=== PATIENT | male | born 1950 | race Caucasian/White ===

== ENCOUNTER 2019-07-29 18:55 | Inpatient (IN) | payer MEDICARE ==
[~2019-07-29] VITALS: Ht 182.9 cm; Wt 93.2 kg
[2019-07-29] MEDS ORDERED: ACETAMINOPHEN 650 MG SUPP PR ONE (19:30)
[2019-07-29 19:42] LABS: RAPID INFLUENZA A Negative (Negative); RAPID INFLUENZA B Negative (Negative)
[2019-07-29 19:47] LABS: ALANINE AMINOTRANSFERASE 217 U/L (12-78); ALBUMIN 3.1 g/dL (3.4-5.0); ANION GAP 8 mmol/L (5-15); CHLORIDE 105 mmol/L (98-107); CREATININE 1.26 mg/dL (0.7-1.3)
[2019-07-29 19:49] LABS: ALKALINE PHOSPHATASE 374 U/L (45-117); BILIRUBIN,TOTAL 1.7 mg/dL (0.2-1.0); TOTAL PROTEIN 6.9 g/dL (6.4-8.2)
[2019-07-29 19:54] LABS: MEAN CORPUSCULAR HGB CONC 31.8 g/dL (33.2-36.2); MEAN CORPUSCULAR VOLUME 78.7 fL (81-97); MEAN PLATELET VOLUME 7.9 fL (7.4-10.4); PLATELET COUNT 245 x10^3/uL (130-400); RED BLOOD COUNT 5.31 x10^6/uL (4.38-5.82); RED CELL DISTRIBUTION WIDTH 24.5 % (9.4-14.8)
[2019-07-29 20:21] LABS: MD YES
[2019-07-29 20:22] LABS: BANDS%(MANUAL) 7 % (0-7); LYMPH#(MANUAL) 0.71 x10^3/uL (1-3.4); LYMPHS% (MANUAL) 10 % (22-44); MONOS#(MANUAL) 0.07 x10^3/uL (0.3-2.7); MONOS% (MANUAL) 1 % (2-9); SEG#(MANUAL) 5.82 x10^3/uL (1.8-6.8); SEGS% (MANUAL) 82 % (42-75)
[2019-07-29 20:23] LABS: <PLATELET ESTIMATE> ADEQUATE; <PLT MORPHOLOGY> NORMAL PLT MORPH; ANISOCYTOSIS 1+; HYPOCHROMIA 1+; MICROCYTOSIS 1+
--- NOTE | 2019-07-29 20:30 | NUR ---
PT FULLY DRESSED, KEEPS REPEATING "I NEED HELP, I'M SICK" INFORMED PT DOCTOR HAS ORDERED TESTS AND TYLENOL SUPPOSITORY. INFORMED PT OF NEED FOR URINE SPECIMEN. PT'S FRIEND IN ROOM. INSTRUCTED PT TO GET INTO HOSPITAL GOWN, FRIEND MAY ASSIST. PT PROCEEDED TO LAY DOWN ON GURNEY.
--- NOTE | 2019-07-29 20:50 | NUR ---
PT SUPINE ON GURNEY, STILL FULLY DRESSED. ASKED PT TO GET INTO GOWN AND TO PROVIDE URINE SPECIMEN
--- NOTE | 2019-07-29 20:57 | NUR ---
PT TO RADIOLOGY PER ALEJANDRO, STILL FULLY DRESSED. NO URINE SPECIMEN PROVIDED, YET.
--- NOTE | 2019-07-29 21:58 | NUR ---
PT IN LT LATERAL POSITION ON BED, STILL FULLY DRESSED; HAS NOT PROVIDED URINE SPECIMEN YET. PER REGISTRATION, PT NOT ANSWERING HER QUESTIONS. PT'S FRIEND NOT IN ROOM. DR KIMBLE NOTIFIED OF PT'S LACK OF COOPERATION
--- NOTE | 2019-07-29 22:00 | NUR ---
PT LYING ON GURNEY, RESP EVEN & UNLABORED, WHEN ASKED WHY HE'S IN ED, PT REPLIES "I HAVE A TERRIBLE CONDITION". PT RAMBLING. STATES "I HAVE A TERRIBLE COLD" C/O EXTREME FATIGUE. LAST CHEMO SESSION 1 WEEK AGO MONDAY. HAVING GREAT DIFFICULTY GETTING PT TO ANSWER QUESTIONS.
[2019-07-29] MEDS ORDERED: SULF1TAB23 PO (22:33)
[2019-07-29] MEDS ORDERED: CBD CAPSULE PO (22:33)
[2019-07-29] MEDS ORDERED: CABO60TA PO (22:33)
[2019-07-29] MEDS ORDERED: CABE0.5T PO (22:33)
[2019-07-29] MEDS ORDERED: SERT50TA28 PO (22:33)
--- NOTE | 2019-07-29 22:33 | NUR ---
PT'S FRIEND BROUGHT PT'S MED BOTTLES TO ED. MED REC COMPLETED USING BOTTLE LABELS.
--- NOTE | 2019-07-29 23:00 | NUR ---
PT REPORT TO SHIRA SALAS. PT CARE TRANSFERRED.
--- NOTE | 2019-07-29 23:20 | NUR ---
EARLENE RN: OLE [phone] EMERGENCY CONTACT.
[2019-07-30] MEDS ORDERED: SODIUM CHLORIDE FLUSH 10ML SYR IVF PRN
--- NOTE | 2019-07-30 00:13 | NUR ---
GENNARO RN NOTIFIED PT HAS PORT AND PT IS BEING DIFFICULT TO OBTAIN AN IV ON, RN "STATED THAT IT SHOULD BE FINE TO ACCESS LONG ONCOLOGIST DOES NOT WANT US TO USE IT" [place] [id number]
[2019-07-30 00:31] VITALS: BP 137/90
[2019-07-30] MEDS ORDERED: VANCOMYCIN PER PHARMACY MC PRN (01:30)
[2019-07-30] MEDS ORDERED: SODIUM CHLORIDE 0.9% 1,000ML IVBOLUS ONE (01:30)
[2019-07-30] MEDS ORDERED: PHARMACOKINETIC CONSULTATION MC ONE (02:00)
[2019-07-30] MEDS ORDERED: PHARMACOKINETIC MONITORING MC PRN (02:00)
[2019-07-30] MEDS ORDERED: LABETALOL 5MG/ML, 20ML IVPush PRN (02:00)
[2019-07-30] MEDS: PIPERACILLIN/TAZO/PMX 3.375GM 50 ML IV SCH ×4 (02:37→21:32)
[2019-07-30] MEDS: ONDANSETRON 2MG/ML, 2ML IVPush PRN ×2 (02:41→10:29)
[2019-07-30 03:29] LABS: INTERNATIONAL NORMALIZED RATIO 1.02 (0.93-1.1); PROTHROMBIN TIME 10.7 Seconds (9.6-11.5)
[2019-07-30 06:48] VITALS: BP 109/79
[2019-07-30 06:52] LABS: MICROSCOPIC AUTO
[2019-07-30 07:01] LABS: AMPHETAMINE SCREEN, URINE Negative (Negative); BARBITURATE SCREEN, URINE Negative (Negative); BENZODIAZEPINE SCREEN, URINE Negative (Negative); CANNABINOID SCREEN, URINE Positive (Negative); COCAINE SCREEN, URINE Negative (Negative); CULTURE INDICATED? YES; METHADONE SCREEN, URINE Negative (Negative); OPIATE SCREEN, URINE Negative (Negative)
[2019-07-30] MEDS: SODIUM CHLORIDE 0.9% 1,000 ML IV SCH ×2 (08:08→17:00)
[2019-07-30] MEDS: ENOXAPARIN 40 MG/0.4 ML SQ SCH (08:08)
[2019-07-30] MEDS: SERTRALINE 50MG TABLET PO SCH (08:08)
[2019-07-30] MEDS: VANCOMYCIN 1,800 MG in SODIUM CHLORIDE 0.9% 250 ML IV SCH (08:08)
[2019-07-30] MEDS ORDERED: OMNIPAQUE 350 MG/ML, 100ML BOTTLE ONE (10:59)
[2019-07-30 12:26] VITALS: BP 144/92
[2019-07-30] MEDS: ACETAMINOPHEN 325 MG TABLET PO PRN ×2 (12:44→18:11)
[2019-07-30] MEDS ORDERED: MAGNESIUM SULFATE PMX 2GM/50ML 50 ML IV ONE (13:00)
[2019-07-30] MEDS: LACTATED RINGERS 1,000 ML IV SCH (13:17)
[2019-07-30 18:55] VITALS: BP 128/77
[2019-07-30] MEDS ORDERED: SUMATRIPTAN 25 MG TABLET PO PRN (20:30)
[2019-07-31] MEDS: LACTATED RINGERS 1,000 ML IV SCH ×4 (01:44→18:00)
[2019-07-31 03:06] VITALS: BP 139/68
[2019-07-31] MEDS: PIPERACILLIN/TAZO/PMX 3.375GM 50 ML IV SCH ×4 (04:06→22:05)
[2019-07-31 04:37] LABS: MEAN CORPUSCULAR HEMOGLOBIN 25.4 pg (27.5-34.5); MEAN CORPUSCULAR VOLUME 79.2 fL (81-97); MEAN PLATELET VOLUME 7.1 fL (7.4-10.4); PLATELET COUNT 190 x10^3/uL (130-400); RED BLOOD COUNT 4.57 x10^6/uL (4.38-5.82); RED CELL DISTRIBUTION WIDTH 24.8 % (9.4-14.8)
[2019-07-31 04:54] LABS: ALBUMIN 2.5 g/dL (3.4-5.0); ANION GAP 5 mmol/L (5-15); CALCIUM 8.2 mg/dL (8.5-10.1); CHLORIDE 106 mmol/L (98-107)
[2019-07-31 04:58] LABS: ALANINE AMINOTRANSFERASE 140 U/L (12-78); ALKALINE PHOSPHATASE 267 U/L (45-117); BILIRUBIN,TOTAL 1.8 mg/dL (0.2-1.0); CREATININE 1.33 mg/dL (0.7-1.3); TOTAL PROTEIN 5.8 g/dL (6.4-8.2)
[2019-07-31 05:39] LABS: BASOPHILS # (AUTO) 0.02 x10^3/uL (0-0.1); BASOPHILS % (AUTO) 0 % (0-1); EOSINOPHILS # (AUTO) 0.15 x10^3/uL (0-0.4); EOSINOPHILS % (AUTO) 3 % (1-7); LYMPHOCYTES # (AUTO) 0.78 x10^3/uL (1-3.4); LYMPHOCYTES % (AUTO) 15 % (22-44); MD SCAN; MONOCYTES % (AUTO) 8 % (2-9); NEUTROPHILS # (AUTO) 3.74 x10^3/uL (1.8-6.8); NEUTROPHILS % (AUTO) 73 % (42-75)
[2019-07-31 06:33] VITALS: BP 139/89
[2019-07-31] MEDS: ACETAMINOPHEN 325 MG TABLET PO PRN ×2 (06:39→15:28)
[2019-07-31] MEDS: ONDANSETRON 2MG/ML, 2ML IVPush PRN ×3 (06:41→21:08)
[2019-07-31] MEDS: VANCOMYCIN 1,800 MG in SODIUM CHLORIDE 0.9% 250 ML IV SCH (07:20)
[2019-07-31] MEDS: SERTRALINE 50MG TABLET PO SCH (07:20)
[2019-07-31] MEDS: ENOXAPARIN 40 MG/0.4 ML SQ SCH (07:20)
[2019-07-31 12:17] VITALS: BP 123/85
[2019-07-31] MEDS ORDERED: LACTATED RINGERS 1,000 ML IV SCH (18:00)
[2019-07-31 18:47] VITALS: BP 141/80
[2019-08-01] MEDS: LACTATED RINGERS 1,000 ML IV SCH ×4 (01:28→22:30)
[2019-08-01 01:32] VITALS: BP 140/83
[2019-08-01] MEDS: PIPERACILLIN/TAZO/PMX 3.375GM 50 ML IV SCH ×3 (04:06→16:00)
[2019-08-01 04:15] LABS: MEAN CORPUSCULAR HEMOGLOBIN 25.3 pg (27.5-34.5); MEAN CORPUSCULAR HGB CONC 31.8 g/dL (33.2-36.2); MEAN CORPUSCULAR VOLUME 79.5 fL (81-97); MEAN PLATELET VOLUME 7.1 fL (7.4-10.4); PLATELET COUNT 189 x10^3/uL (130-400); RED BLOOD COUNT 4.55 x10^6/uL (4.38-5.82); RED CELL DISTRIBUTION WIDTH 24.6 % (9.4-14.8)
[2019-08-01 04:25] LABS: ALBUMIN 2.5 g/dL (3.4-5.0); ANION GAP 3 mmol/L (5-15); CALCIUM 8.4 mg/dL (8.5-10.1); CHLORIDE 109 mmol/L (98-107)
[2019-08-01 04:29] LABS: ALANINE AMINOTRANSFERASE 135 U/L (12-78); ALKALINE PHOSPHATASE 256 U/L (45-117); BILIRUBIN,TOTAL 1.4 mg/dL (0.2-1.0); CREATININE 1.27 mg/dL (0.7-1.3); TOTAL PROTEIN 5.9 g/dL (6.4-8.2)
[2019-08-01 05:41] LABS: ANISOCYTOSIS 1+; BASOPHILS # (AUTO) 0.03 x10^3/uL (0-0.1); BASOPHILS % (AUTO) 1 % (0-1); EOSINOPHILS # (AUTO) 0.16 x10^3/uL (0-0.4); EOSINOPHILS % (AUTO) 4 % (1-7); LYMPHOCYTES # (AUTO) 1.13 x10^3/uL (1-3.4); LYMPHOCYTES % (AUTO) 30 % (22-44); MD MORPH REVIEW ONLY; MICROCYTOSIS 1+; MONOCYTES # (AUTO) 0.37 x10^3/uL (0.2-0.8); MONOCYTES % (AUTO) 10 % (2-9); NEUTROPHILS # (AUTO) 2.06 x10^3/uL (1.8-6.8); NEUTROPHILS % (AUTO) 55 % (42-75)
[2019-08-01 05:42] LABS: <PLATELET ESTIMATE> ADEQUATE; <PLT MORPHOLOGY> NORMAL PLT MORPH; HYPOCHROMIA 1+; OVALOCYTES 1+
[2019-08-01 07:26] VITALS: BP 132/83
[2019-08-01] MEDS: SERTRALINE 50MG TABLET PO SCH (07:45)
[2019-08-01] MEDS: ENOXAPARIN 40 MG/0.4 ML SQ SCH (07:45)
[2019-08-01] MEDS: VANCOMYCIN 1,800 MG in SODIUM CHLORIDE 0.9% 250 ML IV SCH (07:45)
[2019-08-01] MEDS: ACETAMINOPHEN 325 MG TABLET PO PRN (11:45)
[2019-08-01 12:23] VITALS: BP 136/88
[2019-08-01 20:03] VITALS: BP 149/87
[2019-08-02 04:36] VITALS: BP 142/92
[2019-08-02] MEDS: LACTATED RINGERS 1,000 ML IV SCH (04:41)
[2019-08-02 05:02] LABS: ALANINE AMINOTRANSFERASE 127 U/L (12-78); ALBUMIN 2.4 g/dL (3.4-5.0); ANION GAP 3 mmol/L (5-15); CALCIUM 8.5 mg/dL (8.5-10.1); CHLORIDE 111 mmol/L (98-107); CREATININE 1.01 mg/dL (0.7-1.3)
[2019-08-02 05:04] LABS: ALKALINE PHOSPHATASE 247 U/L (45-117); BILIRUBIN,TOTAL 1.1 mg/dL (0.2-1.0); TOTAL PROTEIN 5.6 g/dL (6.4-8.2)
[2019-08-02 08:00] LABS: MEAN CORPUSCULAR HEMOGLOBIN 24.8 pg (27.5-34.5); MEAN CORPUSCULAR HGB CONC 31.4 g/dL (33.2-36.2); MEAN CORPUSCULAR VOLUME 79.1 fL (81-97); MEAN PLATELET VOLUME 7.6 fL (7.4-10.4); PLATELET COUNT 169 x10^3/uL (130-400); RED BLOOD COUNT 4.36 x10^6/uL (4.38-5.82); RED CELL DISTRIBUTION WIDTH 24.5 % (9.4-14.8)
[2019-08-02 08:20] LABS: BASOPHILS # (AUTO) 0.02 x10^3/uL (0-0.1); BASOPHILS % (AUTO) 1 % (0-1); EOSINOPHILS # (AUTO) 0.12 x10^3/uL (0-0.4); EOSINOPHILS % (AUTO) 4 % (1-7); LYMPHOCYTES # (AUTO) 1.01 x10^3/uL (1-3.4); LYMPHOCYTES % (AUTO) 32 % (22-44); MD SCAN; MONOCYTES # (AUTO) 0.33 x10^3/uL (0.2-0.8); MONOCYTES % (AUTO) 11 % (2-9); NEUTROPHILS # (AUTO) 1.65 x10^3/uL (1.8-6.8); NEUTROPHILS % (AUTO) 53 % (42-75)
[2019-08-02 09:03] VITALS: BP 140/96
[2019-08-02] MEDS: SERTRALINE 50MG TABLET PO SCH (09:10)
[2019-08-02] MEDS: ENOXAPARIN 40 MG/0.4 ML SQ SCH (10:01)
[2019-08-02] MEDS ORDERED: ONDA4TAB7 PO (13:42)
[2019-08-02 14:21] VITALS: BP 151/92
== END 2019-08-02 16:02 | disposition home or self-care (01) | DRG 871 ==
LOC: ED 21:00 → EDIP 23:32 → 4NW 07-30 00:24 → DCLOUNGE 08-02 15:53
PROVIDERS: ADMIT Family Medicine; ATTEND Internal Medicine
DX: A41.9 Sepsis, unspecified organism (principal); G93.41 Metabolic encephalopathy; K85.90 Acute pancreatitis without necrosis or infection, unspecified; C78.00 Secondary malignant neoplasm of unspecified lung; C64.9 Malignant neoplasm of unspecified kidney, except renal pelvis; E86.0 Dehydration; N40.0 Benign prostatic hyperplasia without lower urinary tract symptoms; D50.9 Iron deficiency anemia, unspecified; K76.0 Fatty (change of) liver, not elsewhere classified; Z90.5 Acquired absence of kidney; Z80.1 Family history of malignant neoplasm of trachea, bronchus and lung; Z83.3 Family history of diabetes mellitus; Z79.899 Other long term (current) drug therapy
CPT/HCPCS: 36415; 70450; 71045; 74177; 74181; 76700; 80053; 80074; 80307; 81001; 82140; 82607; 82728; 83540; 83550; 83605; 83690; 83735; 84100; 84145; 84443; 84466; 84478; 85025; 85610; 87040; 87086; 87400; 99285; G0378; J1650; J2405; J2543; J3370; Q9967; J3475; J7030; J7050; J7120